=== PATIENT | male | born 1985 | race Hispanic/Latino ===

== ENCOUNTER 2021-02-15 06:11 | Emergency (ER) | payer OTHER ==
[2021-02-15] MEDS ORDERED: CLINDAMYCIN HCL 150 MG CAP ONE (06:45)
== END 2021-02-15 06:58 | disposition home or self-care (01) ==
LOC: EDH 06:11
DX: L89.899 Pressure ulcer of other site, unspecified stage (principal); Z72.0 Tobacco use
CPT/HCPCS: 82948